=== PATIENT | male | born 1960 | race African-American/Black ===

== ENCOUNTER 2018-05-28 07:30 | Emergency (ER) | payer OTHER ==
[~2018-05-28] VITALS: Ht 182.9 cm; Wt 88.9 kg
--- NOTE | 2018-05-28 07:20 | NUR ---
ED Nurse Note: Patient brouhgt in by ambulance from home RA 834 Sister at bedside. ERMD at bedside. patient stated the numbing of the right leg started about last week and it is getting worse, today, patient could not move the leg.
--- NOTE | 2018-05-28 07:35 | Emergency Room Report ---
History of Present Illness General Chief Complaint: Lower Extremity Injury Source: Patient, Family Member Present Illness HPI Patient presents via EMS. Patient woke up with right leg numbness and weakness. He has a slight amount of discomfort in his right hip. Yesterday felt this coming on. He tried drinking more water as he felt somewhat dehydrated. He believes drinking more water helped. He woke up with it this way yesterday morning.. He denies hypertension or diabetes. He denies any back pain, fevers, headache, change in vision. No oncologic problem. No blood thinners. No trauma. His sister has a history of hypertension and had apparently multiple strokes. She has no deficit at this time. 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 Reviewed Nursing Documentation: PMH: Agreed; PSxH: Agreed Review of Systems All Other Systems: negative except mentioned in HPI Physical Exam Vital Signs Date Time Temp Pulse Resp B/P (MAP) Pulse Ox O2 Delivery O2 Flow Rate FiO2 05/28/18 07:12 97.5 79 18 135/80 Room Air Sp02 EP Interpretation: reviewed, normal General Appearance: well appearing, no apparent distress, GCS 15 Head: normocephalic, atraumatic Eyes: bilateral eye normal inspection, bilateral eye PERRL, bilateral eye EOMI ENT: moist mucus membranes Neck: supple Respiratory: lungs clear, normal breath sounds Cardiovascular #1: regular rate, rhythm Cardiovascular #2: 2+ radial (R) Gastrointestinal: normal inspection, normal bowel sounds, non tender, no mass, non-distended Musculoskeletal: back normal, digits/nails normal, normal range of motion, no calf tenderness, other - Unsteady on his feet due to right leg weakness Neurologic: alert, oriented x3, 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 Differential includes stroke, this, peripheral nerve palsy, electrolyte imbalance amongst others. Patient will be evaluated with EKG, chest x-ray and CT of the head and labs. Also an x-ray will be obtained of the pelvis. Considerations for possible CVA, the patient is outside of the window for TPA or transfer to stroke center. In addition this is an unusual presentation for possible CVA. The distribution is more consistent with mononeuritis. EKG without injury. Chest x-ray unremarkable. Normal CBC and CMP. ESR = 8. CT without bleed. Aspirin given. Patient c/o muscle spasms. Magnesium and tylenol given. (Refused Tylenol as states upsets stomach.) Re-examined at 10:42 - much better strength and less spasms. Patient needs both MRI of head and spine. Discussed with Dr. Lira who accepts the patient. Laboratory Tests Test 05/28/18 07:24 05/28/18 07:36 Urine Opiates Screen Negative (NEGATIVE) Urine Barbiturates Screen Negative (NEGATIVE) Phencyclidine (PCP) Screen Negative (NEGATIVE) Urine Amphetamines Screen Negative (NEGATIVE) Urine Benzodiazepines Screen Negative (NEGATIVE) Urine Cocaine Screen Negative (NEGATIVE) Urine Marijuana (THC) Screen Positive (NEGATIVE) H White Blood Count 6.9 K/UL (4.8-10.8) Red Blood Count 4.72 M/UL (4.70-6.10) Hemoglobin 14.9 G/DL (14.2-18.0) Hematocrit 42.7 % (42.0-52.0) Mean Corpuscular Volume 90 FL (80-99) Mean Corpuscular Hemoglobin 31.5 PG (27.0-31.0) H Mean Corpuscular Hemoglobin Concent 34.9 G/DL (32.0-36.0) Red Cell Distribution Width 10.5 % (11.6-14.8) L Platelet Count 302 K/UL (150-450) Mean Platelet Volume 6.7 FL (6.5-10.1) Neutrophils (%) (Auto) 71.2 % (45.0-75.0) Lymphocytes (%) (Auto) 18.3 % (20.0-45.0) L Monocytes (%) (Auto) 5.7 % (1.0-10.0) Eosinophils (%) (Auto) 3.3 % (0.0-3.0) H Basophils (%) (Auto) 1.5 % (0.0-2.0) Erythrocyte Sedimentation Rate 8 MM/HR (0-20) Prothrombin Time 10.4 SEC (9.30-11.50) Prothrombin Time INR 1.0 (0.9-1.1) PTT 27 SEC (23-33) Urine Color Yellow Urine Appearance Clear Urine pH 5 (4.5-8.0) Urine Specific [place] 1.015 (1.005-1.035) Urine Protein Negative (NEGATIVE) Urine Glucose (UA) Negative (NEGATIVE) Urine Ketones Negative (NEGATIVE) Urine Blood Negative (NEGATIVE) Urine Nitrite Negative (NEGATIVE) Urine Bilirubin Negative (NEGATIVE) Urine Urobilinogen Normal MG/DL (0.0-1.0) Urine Leukocyte Esterase 1+ (NEGATIVE) H Urine RBC 0 /HPF (0 - 0) Urine WBC 0-2 /HPF (0 - 0) Urine Squamous Epithelial Cells None /LPF (NONE/OCC) Urine Bacteria Occasional /HPF (NONE) Urine Mucus Few /LPF (NONE/OCC) H Sodium Level 139 MMOL/L (136-145) Potassium Level 3.7 MMOL/L (3.5-5.1) Chloride Level 104 MMOL/L (98-107) Carbon Dioxide Level 24 MMOL/L (21-32) Anion Gap 11 mmol/L (5-15) Blood Urea Nitrogen 7 mg/dL (7-18) Creatinine 0.8 MG/DL (0.55-1.30) Estimate Glomerular Filtration Rate > 60 mL/min (>60) Glucose Level 107 MG/DL (74-106) H Calcium Level 9.3 MG/DL (8.5-10.1) Magnesium Level 1.9 MG/DL (1.8-2.4) Total Bilirubin 0.5 MG/DL (0.2-1.0) Aspartate Amino Transferase (AST) 29 U/L (15-37) Alanine Aminotransferase (ALT) 61 U/L (12-78) Alkaline Phosphatase 50 U/L (46-116) Total Creatine Kinase 211 U/L (26-308) Troponin I 0.024 ng/mL (0.000-0.056) Pro-B-Type Natriuretic Peptide 32 pg/mL (0-125) Total Protein 7.2 G/DL (6.4-8.2) Albumin 3.6 G/DL (3.4-5.0) Globulin 3.6 g/dL Albumin/Globulin Ratio 1.0 (1.0-2.7) EKG Diagnostic Results Rate: normal Rhythm: NSR ST Segments: no acute changes Rhythm Strip Diag. Results EP Interpretation: yes Rhythm: NSR, no PVC's, no ectopy Chest X-Ray Diagnostic Results Chest X-Ray Diagnostic Results : Chest X-Ray Ordered: Yes # of Views/Limited/Complete: 1 View Indication: Other EP Interpretation: Yes Interpretation: no consolidation, no effusion, no pneumothorax Impression: No acute disease Electronically Signed by: Electronically signed by Carlos Holland MD Other X-Ray Diagnostic Results Other X-Ray Diagnostic Results : X-Ray ordered: Pelvis # of Views/Limited Vs Complete: 1 View Indication: Other EP Interpretation: Yes Interpretation: no dislocation, no soft tissue swelling, no fractures Impression: No acute disease Electronically Signed by: Electronically signed by Carlos Holland MD CT/MRI/US Diagnostic Results CT/MRI/US Diagnostic Results : Imaging Test Ordered: Head Impression No mass, bleed or strokes 1. No acute intracranial process. 2. Bilateral frontal white matter hypoattenuations, likely small vessel disease. 3. Complete opacification of the bilateral frontal, ethmoid and maxillary sinuses. Last Vital Signs Date Time Temp Pulse Resp B/P (MAP) Pulse Ox O2 Delivery O2 Flow Rate FiO2 05/28/18 13:43 97.1 64 17 155/86 97 Room Air Status: improved Disposition: XFER SHT-TRM HOSP Condition: Serious Carlos Holland MD May 28, 2018 07:35
--- NOTE | 2018-05-28 07:44 | NUR ---
ED Nurse Note: blood and ua collected.
--- NOTE | 2018-05-28 07:46 | NUR ---
ED Nurse Note: patient denies any injury, per patient the numbness started all of a sudden.
--- NOTE | 2018-05-28 07:47 | NUR ---
ED Nurse Note: patient went down to CT.
[2018-05-28 08:22] LABS: BASOPHILS % (AUTO) 1.5 % (0.0-2.0); EOSINOPHILS % (AUTO) 3.3 % (0.0-3.0); HEMATOCRIT 42.7 % (42.0-52.0); HEMOGLOBIN 14.9 G/DL (14.2-18.0); LYMPHOCYTES % (AUTO) 18.3 % (20.0-45.0); MEAN CORPUSCULAR VOLUME 90 FL (80-99); MONOCYTES % (AUTO) 5.7 % (1.0-10.0); NEUTROPHILS % (AUTO) 71.2 % (45.0-75.0); PLATELET COUNT 302 K/UL (150-450); RED BLOOD COUNT 4.72 M/UL (4.70-6.10); RED CELL DISTRIBUTION WIDTH 10.5 % (11.6-14.8); WHITE BLOOD COUNT 6.9 K/UL (4.8-10.8)
--- NOTE | 2018-05-28 08:24 | Diagnostic Imaging Report ---
EXAM: CT Head Without Intravenous Contrast CLINICAL HISTORY: WEAK TECHNIQUE: Axial computed tomography images of the head/brain without intravenous contrast. CTDI is 70.38 mGy and DLP is 1439 mGy-cm. One or more of the following dose reduction techniques were used: automated exposure control, adjustment of the mA and/or kV according to patient size, use of iterative reconstruction technique. COMPARISON: No relevant prior studies available. FINDINGS: No intracranial hemorrhage, abnormal intra- or extra-axial collections or parenchymal lesions are seen. Scattered white matter hypoattenuations are present, predominantly bilateral frontal lobes, likely from small vessel disease. The overton-white differentiation is preserved. No evidence of mass effect, midline shift, or edema. The osseous structures are unremarkable. Complete opacification of the bilateral frontal, ethmoid and maxillary sinuses. Mastoid air cells are clear. IMPRESSION: 1. No acute intracranial process. 2. Bilateral frontal white matter hypoattenuations, likely small vessel disease. 3. Complete opacification of the bilateral frontal, ethmoid and maxillary sinuses.
[2018-05-28 08:29] LABS: APPEARANCE,URINE CLEAR; BILIRUBIN, URINE NEGATIVE (NEGATIVE); GLUCOSE, URINE (UA) NEGATIVE (NEGATIVE); KETONES,URINE NEGATIVE (NEGATIVE); LEUKOCYTE ESTERASE ,URINE 1+ (NEGATIVE); NITRITE,URINE NEGATIVE (NEGATIVE); PH,URINE 5 (4.5-8.0); PROTEIN,URINE NEGATIVE (NEGATIVE); UROBILINOGEN,URINE NORMAL MG/DL (0.0-1.0)
[2018-05-28 08:31] VITALS: BP 140/85
[2018-05-28 08:32] LABS: COLOR,URINE YELLOW
--- NOTE | 2018-05-28 08:33 | Diagnostic Imaging Report ---
EXAM: XR Chest, 1 View CLINICAL HISTORY: WEAK TECHNIQUE: Frontal view of the chest. COMPARISON: Chest x-ray 01/15/15 FINDINGS: Lungs: Unremarkable. No consolidation. Pleural space: Unremarkable. No pneumothorax. Heart: Unremarkable. No cardiomegaly. Mediastinum: Unremarkable. Bones/joints: Unremarkable. IMPRESSION: Normal chest x-ray.
--- NOTE | 2018-05-28 08:34 | Diagnostic Imaging Report ---
EXAM: XR Pelvis, 1 or 2 Views CLINICAL HISTORY: WEAK TECHNIQUE: Frontal view of the pelvis. COMPARISON: No relevant prior studies available. FINDINGS: Bones/joints: Unremarkable. No acute fracture. No dislocation. Soft tissues: Unremarkable. IMPRESSION: Normal pelvis x-ray.
[2018-05-28 08:35] LABS: ANION GAP 11 mmol/L (5-15); BLOOD UREA NITROGEN 7 mg/dL (7-18); CALCIUM 9.3 MG/DL (8.5-10.1); CARBON DIOXIDE 24 MMOL/L (21-32); CHLORIDE 104 MMOL/L (98-107); CREATININE 0.8 MG/DL (0.55-1.30); POTASSIUM 3.7 MMOL/L (3.5-5.1); SODIUM 139 MMOL/L (136-145)
[2018-05-28 08:47] LABS: ALANINE AMINOTRANSFERASE 61 U/L (12-78); ALBUMIN 3.6 G/DL (3.4-5.0); ALKALINE PHOSPHATASE 50 U/L (46-116); ASPARTATE AMINO TRANSFERASE 29 U/L (15-37); BILIRUBIN,TOTAL 0.5 MG/DL (0.2-1.0); CREATINE KINASE 211 U/L (26-308)
[2018-05-28 10:39] VITALS: BP 137/82
--- NOTE | 2018-05-28 11:06 | Cardiology Report ---
APPROVED REPORT EKG Measurement Heart [id number] Normal sinus rhythm with sinus arrhythmia Normal ECG
[2018-05-28 12:59] VITALS: BP 137/82
--- NOTE | 2018-05-28 13:00 | NUR ---
ED Nurse Note: Report given to Soumya CALDERON at [facility]
[2018-05-28 13:43] VITALS: BP 155/86
--- NOTE | 2018-05-28 13:45 | NUR ---
ED Nurse Note: Patient is being transferred to [facility] via ambulace report given to AMANDA CALDERON, going to room 126B. patient left with all of his belonings.
== END 2018-05-28 13:47 | disposition short-term general hospital (02) ==
LOC: EDBD 07:30 → EMR 10:20
DX: R53.1 Weakness (principal); R20.0 Anesthesia of skin; Z88.2 Allergy status to sulfonamides
CPT/HCPCS: 36415; 70450; 71045; 72170; 80053; 80307; 81003; 82550; 83735; 83880; 84484; 85025; 85610; 85651; 85730; 93005; 96365; 99285